=== PATIENT | female | born 1985 | race Caucasian/White ===

== ENCOUNTER 2018-11-25 11:11 | Emergency (ER) | payer MEDICARE, MEDICAID ==
[~2018-11-25] VITALS: Ht 157.5 cm; Wt 97.7 kg
[2018-11-25 11:21] VITALS: BP 135/70; Ht 157.5 cm; Wt 97.7 kg
[2018-11-25] MEDS ORDERED: AMBIEN10 MG PO (11:22)
[2018-11-25] MEDS ORDERED: TRILEPTAL600 MG PO (11:22)
[2018-11-25 12:17] LABS: APPEARANCE CLEAR (CLEAR); BACTERIA FEW /hpf (NONE SEEN); BILIRUBIN NEGATIVE (NEGATIVE); COLOR YELLOW (YELLOW); EPITHELIAL CELLS 0-5 /hpf (0-5); GLUCOSE NEGATIVE (NEGATIVE); KETONE NEGATIVE (NEGATIVE); NITRITE NEGATIVE (NEGATIVE); PROTEIN NEGATIVE (NEGATIVE); UROBILINOGEN NORMAL (NORMAL); WHITE CELLS - URINE OCC /hpf (0-5)
[2018-12-13] MEDS ORDERED: XANAX2 MG PO (15:06)
[2018-12-13] MEDS ORDERED: ADDERALL 30 MG30 MG PO (15:06)
[2018-12-13] MEDS ORDERED: ALPHAGAN 0.2%5 ML EACH EYE (15:07)
== END 2018-11-25 14:31 | disposition home or self-care (01) ==
LOC: D.ER 11:11
PROVIDERS: Emergency Medicine
DX: R10.2 Pelvic and perineal pain (principal); F17.200 Nicotine dependence, unspecified, uncomplicated

== ENCOUNTER → 2018-11-25 16:45 | Outpatient (CLI) | payer MEDICARE, MEDICAID ==
[2018-11-25 11:21] VITALS: BMI 39.4
[~2018-11-25 16:45] MED LIST: ADDERALL 30 MG30 MG PO; ALPHAGAN 0.2%5 ML EACH EYE; AMBIEN10 MG PO; TRILEPTAL600 MG PO; XANAX2 MG PO
== END | disposition home or self-care (01) ==
LOC: D.US 16:30
DX: R10.2 Pelvic and perineal pain (principal)

== ENCOUNTER 2018-12-15 10:00 | Day surgery (SDC) | payer MEDICARE, MEDICAID ==
[2018-12-13 15:51] LABS: BASOPHILS 0.3 % (0-2); EOSINOPHILS 3.7 % (0-7); HEMATOCRIT 39.2 % (36.0-48.0); HEMOGLOBIN 13.8 g/dL (12-16); IMMATURE GRANULOCYTES 0.3 % (0-5); LYMPHOCYTES 27.3 % (15-50); MCH 31.2 pg (26.0-34.0); MCHC 35.2 g/dL (31.0-37.0); MCV 88.7 fL (80.0-100.0); MEAN PLATELET VOLUME 10.4 fL (7.4-10.4); MONOCYTES 8.4 % (2-11); PLATELET COUNT 224 10x3/uL (130-400); RBC 4.42 10x6/uL (4.00-5.40); RDW 12.3 % (11.5-14.5); WBC 11.6 10x3/uL (4.8-10.8)
[~2018-12-15] VITALS: Ht 157.5 cm; Wt 101.6 kg
[2018-12-15 10:45] VITALS: BP 108/62; BMI 41.0
[2018-12-15 11:51] VITALS: Ht 157.5 cm; Wt 101.6 kg
--- NOTE | 2018-12-15 15:14 | NUR ---
1500 PT DRESSED DC INSTS GIVEN RX GIVEN VOICED UNDERSTANDING RELEASED IN WC WITH SPOUSE
== END 2018-12-15 15:00 | disposition home or self-care (01) ==
LOC: D.OPS 10:00 → D.PAN 12:00 → D.OPS 12:00
PROVIDERS: Obstetrics & Gynecology
DX: O02.0 Blighted ovum and nonhydatidiform mole (principal); F31.9 Bipolar disorder, unspecified; Z72.0 Tobacco use

== ENCOUNTER → 2021-01-16 09:16 | Outpatient (CLI) | payer MEDICARE, MEDICAID ==
[2018-12-15 11:51] VITALS: BMI 41.0
== END | disposition home or self-care (01) ==
LOC: D.CT 09:16
PROVIDERS: ATTEND Obstetrics & Gynecology
DX: R10.2 Pelvic and perineal pain (principal)